=== PATIENT | female | born 1935 | race Caucasian/White ===

== ENCOUNTER 2017-01-29 20:51 | Emergency (ER) | payer OTHER, BC ==
[2017-01-29 21:01] VITALS: BP 173/87; PULSE 79; TEMP 97.6; BMI 21.2
--- NOTE | 2017-01-29 21:11 | PDOC ---
History of Present Illness - General History Source: Patient Exam Limitations: No Limitations - History of Present Illness Initial Comments: 01/29/17 21:14 The patient is an 81 year old female with history significant for hypertension, hyperlipidemia, and bipolar disorder, brought in by EMS for an episode of room- spinning dizziness with associated nausea this evening. The patient reports she was resting at home doing nothing in particular at the onset of her symptoms. She alerted her [facility] staff, who activated EMS. Her symptoms spontaneous resolved on their own after several minutes. On ED evaluation, she is without physical complaint. No vomiting or diarrhea. No chest pain or shortness of breath. No headache, blurred vision, numbness, or tingling. No feelings of stress or anxiety. No recent changes in behavior or daily activities. This has never happened before. <Candy Goyal - Last Filed: 01/29/17 21:15> <Shayne Serrano - Last Filed: 01/30/17 01:52> - General Chief Complaint: Lightheaded Stated Complaint: BIBA-DIZZY Time Seen by Provider: 01/29/17 20:55 Past History <Candy Goyal - Last Filed: 01/29/17 21:15> - Past Medical History COPD: No GI Disorders: Yes (GERD) HTN: Yes Hypercholesterolemia: Yes Psychiatric Problems: Yes (BIPOLAR) Thyroid Disease: Yes - Surgical History Abdominal Surgery: Yes (? COLORECTAL REPAIR) - Suicide/Smoking/Psychosocial Hx Smoking History: Unknown if ever smoked Have you smoked in the past 12 months: No Number of Cigarettes Smoked Daily: 0 Information on smoking cessation initiated: No Hx Alcohol Use: No Drug/Substance Use Hx: No Substance Use Type: None <Shayne Serrano - Last Filed: 01/30/17 01:52> - Past Medical History Allergies/Adverse Reactions: Allergies Allergy/AdvReac Type Severity Reaction Status Date / Time honey dew melon AdvReac Mild Uncoded 11/01/15 18:17 Home Medications: Ambulatory Orders Levothyroxine [Synthroid -] 175 mcg PO DAILY 01/18/15 Lisinopril 10 mg PO DAILY 01/18/15 Febuxostat [Uloric -] 40 mg PO DAILY 11/01/15 Lamotrigine [Lamictal] 25 mg PO DAILY 11/01/15 Mirtazapine [Remeron -] 30 mg PO DAILY 11/01/15 Review of Systems - Review of Systems Able to Perform ROS?: Yes Comments:: 01/29/17 21:19 GENERAL/CONSTITUTIONAL: No fever or chills. No weakness. HEAD, EYES, EARS, NOSE AND THROAT: No change in vision. No ear pain or discharge. No sore throat. GASTROINTESTINAL: +Nausea. No abdominal pain, vomiting, diarrhea or constipation. GENITOURINARY: No dysuria, frequency, or change in urination. CARDIOVASCULAR: No chest pain or shortness of breath. RESPIRATORY: No cough, wheezing, or hemoptysis. MUSCULOSKELETAL: No joint or muscle swelling or pain. No neck or back pain. SKIN: No rash NEUROLOGIC: +Vertigo (resolved). No headache, loss of consciousness, or change in strength/sensation. ENDOCRINE: No increased thirst. No abnormal weight change. HEMATOLOGIC/LYMPHATIC: No anemia, easy bleeding, or history of blood clots. ALLERGIC/IMMUNOLOGIC: No hives or skin allergy. <Candy Goyal - Last Filed: 01/29/17 21:15> *Physical Exam - Vital Signs Last Vital Signs Temp Pulse Resp BP Pulse Ox 97.6 F 79 14 173/87 96 01/29/17 20:54 01/29/17 20:54 01/29/17 20:54 01/29/17 20:54 01/29/17 20:54 - Physical Exam Comments: 01/29/17 21:19 GENERAL: Awake, alert, and fully oriented, in no acute distress HEAD: No signs of trauma EYES: PERRLA, EOMI, sclera anicteric, conjunctiva clear ENT: Auricles normal inspection, hearing grossly normal, nares patent, oropharynx clear without exudates. Moist mucosa NECK: Normal ROM, supple, no lymphadenopathy, JVD, or masses LUNGS: Breath sounds equal, clear to auscultation bilaterally. No wheezes, and no crackles HEART: Regular rate and rhythm, normal S1 and S2, no murmurs, rubs or gallops ABDOMEN: Soft, nontender, normoactive bowel sounds. No guarding, no rebound. No masses EXTREMITIES: Normal range of motion, no edema. No clubbing or cyanosis. No cords, erythema, or tenderness BACK: No midline spinal tenderness in cervical/thoracic/lumbar region NEUROLOGICAL: Normal speech, cranial nerves intact, 5/5 strength in all 4 extremities, normal sensation to light touch in all 4 extremities. Dizziness is not brought on by ROM of neck or positional changes. Gait is stable without ataxia. SKIN: Warm, Dry, normal turgor, no rashes or lesions noted. <Candy Goyal - Last Filed: 01/29/17 21:15> - Vital Signs Last Vital Signs Temp Pulse Resp BP Pulse Ox 97.6 F 79 14 173/87 96 01/29/17 20:54 01/29/17 20:54 01/29/17 20:54 01/29/17 20:54 01/29/17 20:54 <Shayne Serrano - Last Filed: 01/30/17 01:52> ED Treatment Course - LABORATORY CBC & Chemistry Diagram: 01/29/17 21:20 01/29/17 21:20 <Shayne Serrano - Last Filed: 01/30/17 01:52> Medical Decision Making - Medical Decision Making 01/30/17 01:50 EKG was reviewed. Normal sinus rhythm. 83/m. Borderline LVH. No ST-T wave changes. Otherwise normal EKG CBC, chemistries, and cardiac enzymes without significant abnormalities The patient symptoms have not returned. She is neurologically intact. She is asymptomatic, even with sustained ambulation. The transient nature of her nausea and dizziness after eating while watching TV suggest possible mild vasovagal near-syncope or anxiety, which the patient has suffered in the past Hemodynamically and clinically stable with no recurrence of symptoms upon prolonged observation, discharged to follow-up with primary physician or return to ER if symptoms return or any new symptoms develop. Fully ambulatory and in no distress at discharge. <Shayne Serrano - Last Filed: 01/30/17 01:52> *DC/Admit/Observation/Transfer - Attestations Scribe Attestion: 01/29/17 21:20 Documentation prepared by Candy Goyal, acting as biomedical specialist for Shayne Serrano MD. <Candy Goyal - Last Filed: 01/29/17 21:15> <Shayne Serrano - Last Filed: 01/30/17 01:52> Diagnosis at time of Disposition: Anxiety - Discharge Dispostion Disposition: HOME Condition at time of disposition: Improved - Referrals Referrals: Jerry Griffin [Primary Care Provider] - 2 Days - Patient Instructions Printed Discharge Instructions: DI for Anxiety -- Adult Additional Instructions: If symptoms recur, or prolonged, or accompanied by other symptoms such as chest pain, shortness of breath, nausea, perspiring, abdominal pain, vomiting, or diarrhea, return to the emergency room immediately. Otherwise follow-up as directed with your primary physician.
[2017-01-29 21:35] LABS: MEAN PLT VOLUME 11.3 fl (7.5-11.1); WHITE BLOOD COUNT 6.3 K/mm3 (4.0-10.8)
[2017-01-29 21:41] LABS: BASOPHIL 2.6 % (0-2.0); EOSINOPHIL 4.1 % (0-4.5); MCH 31.9 pg (25.7-33.7); MCHC 33.6 g/dl (32.0-36.0); MEAN CELL VOLUME 94.9 fl (80-96); PLATELET COUNT 140 K/MM3 (134-434)
[2017-01-29 21:48] LABS: ALBUMIN 3.9 g/dl (3.5-5.0); ALK PHOS 68 U/L (32-92); ANION GAP 7 (8-16); BILIRUBIN,TOTAL 0.8 mg/dl (0.2-1.0); CALCIUM 9.9 mg/dl (8.4-10.2); CO2 24 mmol/L (22-28); CPK 68 IU/L (26-192); CREATININE 2.2 mg/dl (0.6-1.3); GLUCOSE,RANDOM 107 mg/dl (74-106); SGOT/AST 29 U/L (10-42); SGPT/ALT 26 U/L (10-40); TOT PROT 6.4 g/dl (6.4-8.3)
[2017-01-29 22:00] LABS: TROPONIN I (DFP) < 0.03 ng/ml (0.03-0.50)
[2017-01-29 22:02] LABS: URINE APPEARANCE Clear; URINE BILIRUBIN Negative (NEGATIVE); URINE BLOOD Negative (NEGATIVE); URINE GLUCOSE (UA) Negative (NEGATIVE); URINE KETONE Negative (NEGATIVE); URINE NITRITE Negative (NEGATIVE); URINE UROBILINOGEN 0.2 (0.2-1.0)
[2017-01-29 22:04] LABS: URINE COLOR YELLOW; URINE LEUK ESTERASE 1+ (NEGATIVE); URINE PROTEIN 1+ (NEGATIVE)
[2017-01-29 22:20] LABS: URINE RBC 0-2 /hpf (0-3)
[2017-01-29 22:21] LABS: URINE BACTERIA FEW /hpf (NEGATIVE)
--- NOTE | 2017-01-30 12:29 | EKG ---
Test Reason : Blood Pressure : / mmHG Vent. Rate : 083 BPM Atrial Rate : 083 BPM P-R Int : 154 ms QRS Dur : 098 ms QT Int : 384 ms P-R-T Axes : 041 -21 023 degrees QTc Int : 451 ms NORMAL SINUS RHYTHM POSSIBLE LEFT ATRIAL ENLARGEMENT LEFT VENTRICULAR HYPERTROPHY ABNORMAL ECG NO PREVIOUS ECGS AVAILABLE Confirmed by FATOUMATA DOBSON MD ([id number] on 01/30/2017 12:28:35 PM Referred By: MD GARCIA Confirmed By:FATOUMATA DOBSON MD
== END 2017-01-29 22:56 | disposition home or self-care (01) ==
LOC: FER 20:51
DX: F41.9 Anxiety disorder, unspecified (principal); I10 Essential (primary) hypertension; E78.5 Hyperlipidemia, unspecified; F31.9 Bipolar disorder, unspecified; K21.9 Gastro-esophageal reflux disease without esophagitis
CPT/HCPCS: 36415; 80053; 81003; 81015; 82550; 84484; 85025; 93005; 99284-25

== ENCOUNTER 2022-01-24 08:08 | Emergency (ER) | payer OTHER, BC ==
[2022-01-24] MEDS ORDERED: ONDANSETRON 4 MG/2 ML VIAL IVPUSH ONE (08:22)
[2022-01-24] MEDS ORDERED: ACETAMINOPHEN 1000 MG/100 ML BAG IVPB ONE (08:22)
[2022-01-24 08:34] VITALS: BP 100/59; PULSE 77; RESP 20; TEMP 98.6; BMI 20.3
[2022-01-24] MEDS ORDERED: ACETAMINOPHEN INJECTION 100 ML IVPB ONE (08:50)
[2022-01-24] MEDS ORDERED: ONDANSETRON 4 MG/2 ML VIAL ONE (08:50)
[2022-01-24 09:20] LABS: INR 0.97 (0.83-1.09); PROTHROMBIN TIME (PATIENT) 11.2 SEC (9.7-13.0)
[2022-01-24 09:35] LABS: HEMATOCRIT 26.3 % (32.4-45.2); HEMOGLOBIN 8.7 G/dL (10.7-15.3); MCHC 33.1 g/dl (32.0-36.0); MEAN CELL VOLUME 99.7 fl (80-96); MEAN PLT VOLUME 9.2 fl (7.5-11.1); PLATELET COUNT 209.2 10^3/uL (134-434); RBC 2.64 10^6/uL (3.60-5.2); RDW 14.2 % (11.6-15.6); WHITE BLOOD COUNT 6.9 10^3/uL (4.0-10.8)
[2022-01-24 09:40] LABS: ALBUMIN 3.2 g/dl (3.4-5.0); BILIRUBIN,TOTAL 0.5 mg/dl (0.2-1); CALCIUM 8.8 mg/dl (8.5-10); CREATININE 4.6 mg/dl (0.55-1.3); TOT PROT 5.9 g/dl (6.4-8.2)
[2022-01-24 09:59] LABS: PLATELET ESTIMATE ADEQUATE
== END 2022-01-24 15:23 | disposition home or self-care (01) ==
LOC: FER 08:08
PROC: 3E033GC Introduction of Other Therapeutic Substance into Peripheral Vein, Percutaneous Approach (ICD-10-PCS; principal; 2022-01-24)
DX: R10.30 Lower abdominal pain, unspecified (principal)
CPT/HCPCS: 0241U-QW; 36415; 71045-TC-FY; 74176-TC; 80053; 84484; 85027; 85610; 85730; 86850; 86900; 86901; 93005; 99285-25

== ENCOUNTER 2022-01-29 06:35 | Emergency (ER) | payer OTHER, BC ==
[2022-01-29 06:51] VITALS: BP 140/81; PULSE 81; RESP 16; TEMP 98.6; BMI 21.2
[2022-01-29 08:01] LABS: HEMATOCRIT 26.4 % (32.4-45.2); HEMOGLOBIN 8.8 G/dL (10.7-15.3); MCHC 33.2 g/dl (32.0-36.0); MEAN CELL VOLUME 99.2 fl (80-96); MEAN PLT VOLUME 8.8 fl (7.5-11.1); RBC 2.66 10^6/uL (3.60-5.2); RDW 14.7 % (11.6-15.6); WHITE BLOOD COUNT 5.7 10^3/uL (4.0-10.8)
[2022-01-29 08:09] LABS: ALBUMIN 3.5 g/dl (3.4-5.0); BILIRUBIN,TOTAL 0.7 mg/dl (0.2-1); CALCIUM 9.2 mg/dl (8.5-10); MAGNESIUM 2.1 mg/dL (1.8-2.4); TOT PROT 6.4 g/dl (6.4-8.2)
[2022-01-29] MEDS ORDERED: SODIUM CHLORIDE 0.9% 500 ML INFUS.BAG IV ONE (08:31)
[2022-01-29 09:34] LABS: PLATELET ESTIMATE ADEQUATE
[2022-01-29 09:44] LABS: EPITHELIAL CELLS FEW /hpf
== END 2022-01-29 09:08 | disposition home or self-care (01) ==
LOC: FER 06:35
DX: K59.00 Constipation, unspecified (principal)
CPT/HCPCS: 36415; 74018-TC-FY; 80053; 81003; 81015; 83735; 85027; 87086; 99284-25